=== PATIENT | female | born 1985 | race Caucasian/White ===

== ENCOUNTER 2022-05-18 18:01 | Emergency (ER) | payer OTHER ==
[2022-05-18] MEDS ORDERED: BUFFERED LIDOCAINE 10 ML SYRINGE IU ONE (18:22)
[2022-05-18] MEDS ORDERED: LORazepam 2 MG/ML VIAL IM STA (18:22)
--- NOTE | 2022-05-18 18:30 | ED Physician Documentation ---
History of Present Illness - Stated complaint Stated Complaint: FEMALE - Chief complaint Chief Complaint: General - Additonal information Additional information: This is a 36-year-old female with a history of recurrent left labial Bartholin gland cyst. She has had multiple different Interventions in the past including I&D, packing, drain placement, and antibiotics. She states that it always comes back. She has not been seen here for it recently but has been seen here in the past many years ago. She denies any fever, chills, dysuria urgency or frequency. No concern for STI. Review of Systems Constitutional: reports: Reviewed and negative Cardiac: reports: Reviewed and negative Respiratory: reports: Reviewed and negative GI: reports: Reviewed and negative : reports: Other (left labial swelling). denies: Dysuria, Frequency, Hesitancy, Unable to Void, Incontinent, Hematuria, Discharge, LMP, Vaginal bleeding, Irregular menses, Missed period, Now EGA, Control, Hysterectomy, Testicular pain, Testicular mass, Chang Problem Skin: reports: Lesions (left labia) PD PAST MEDICAL HISTORY - Past Surgical History Past Surgical History: No - Present Medications Home Medications: Ambulatory Orders Medication Instructions Recorded Confirmed ALPRAZolam [Alprazolam] 0.5 mg PO TID PRN 05/18/22 05/18/22 Doxycycline [Vibramycin] 100 mg PO BID #20 tablet 05/18/22 Fluoxetine HCl 60 mg PO DAILY 05/18/22 05/18/22 HYDROcod/ACETAM 5/325 [[place] 5/325] 1 - 2 tablet PO Q6H PRN #14 tablet 05/18/22 Quetiapine Fumarate [Seroquel] 50 mg PO HS 05/18/22 05/18/22 Sumatriptan Succinate [Imitrex] 50 mg PO Q4H PRN 05/18/22 05/18/22 - Allergies Allergies/Adverse Reactions: Allergies Allergy/AdvReac Type Severity Reaction Status Date / Time No Known Drug Allergies Allergy Verified 05/18/22 18:10 - Social History Does the pt smoke?: Yes Smoking Status: Current every day smoker Does the pt drink ETOH?: No Does the pt have substance abuse?: No - Immunizations Immunizations are current?: Yes PD ED PE NORMAL - Vitals Vital signs reviewed: Yes - General General: Alert and oriented X 3, No acute distress, Well developed/nourished - HEENT HEENT: Atraumatic, Pharynx benign - Abdomen Abdomen: Normal bowel sounds, Soft, Non tender, Non distended - Derm Derm: Normal color, Warm and dry, Other (left labial bartholin gland cyst) Results - Vitals Vitals: Vital Signs - 24 hr 05/18/22 18:08 Temperature 36.1 C L Heart Rate 76 Respiratory 17 Rate Blood Pressure 142/85 H O2 Saturation 98 Oxygen O2 Source Room air Procedures - Abscess I&D (location) left Preparation: Betadine, Lidocaine 1% Incision: Incised with scalpel, Loculations broken, Irrigated Other: Pt tolerated well, Dressing applied, Antibiotic prescribed PD Medical Decision Making - ED course Complexity details: reviewed old records, d/w patient ED course: This is a 76-year-old female who presented with a recurrent left Bartholin's gland cyst as described in HPI. The patient has had this lanced and addressed a number of different times and unfortunately keeps recurring. Today, we again discussed interventions. Patient states that in the past the Babcock catheters have fallen out and have not given her much relief therefore we Discussed just lancing it today and starting on antibiotics. The patient verbally consented to the procedure. She was prepped in the usual manner and the site was cleaned with Betadine. I anesthetized locally with buffered 1% plain lidocaine and after adequate anesthesia achieved, I lanced the a Bartholin's gland cyst that drained clear liquid. The cyst was explored and loculations broken up. The patient tolerated well. We will start the patient on doxycycline and pain medication as needed. She was given return precautions if new or worsening symptoms. Departure - Departure Disposition: 01 Home, Self Care Clinical Impression: Bartholin gland cyst Condition: Good Instructions: ED Bartholins Cyst IandD Prescriptions: HYDROcod/ACETAM 5/325 [[place] 5/325] 1 - 2 tablet PO Q6H PRN #14 tablet PRN Reason: Pain Doxycycline [Vibramycin] 100 mg PO BID #20 tablet Comments: You presented with a recurrent left Bartholin's gland cyst. Unfortunately this has been a recurrent issue for you despite appropriate treatment in the past. We have lanced the cyst today and I have started you on antibiotics and have prescribed pain medication. Please utilize warm compress or warm soaks as well to help with pain and swelling. Return if you develop any signs of increasing infection such as fever, increasing redness or swelling, purulent drainage or other new concerns. Please follow back up with your [facility] In the next week or 2 if possible.
[2022-05-18] MEDS ORDERED: HYDROcod/ACETAM 5/325 MG TABLET PO STA (18:33)
[2022-05-18 19:26] VITALS: BP 136/80
== END 2022-05-18 19:26 | disposition home or self-care (01) ==
LOC: ED 18:01
DX: N75.0 Cyst of Bartholin's gland (principal); F17.200 Nicotine dependence, unspecified, uncomplicated
CPT/HCPCS: 56420; 96372; 99283; A9270; J2060